=== PATIENT | female | born 2000 | race Native Hawaiian/Other Pacific Islander ===

== ENCOUNTER 2021-05-19 15:16 | Outpatient (CLI) | payer OTHER ==
[2021-05-19 16:17] LABS: PLATELET COUNT 243 K/uL (152-353)
[2021-05-19 16:42] LABS: POTASSIUM 3.7 mmol/L (3.6-5.2)
== END 2021-05-19 21:58 | disposition home or self-care (01) ==
LOC: LABW 15:16
PROVIDERS: ATTEND Nurse Practitioner Family
DX: E28.2 Polycystic ovarian syndrome (principal); R53.83 Other fatigue; N30.01 Acute cystitis with hematuria
CPT/HCPCS: 36415; 80053; 80061; 82306; 82607; 82670; 82746; 83001; 83002; 83519; 83520; 83525; 84146; 84402; 84403; 84439; 84443; 85027; 87088

== ENCOUNTER 2022-02-09 13:43 | Outpatient (CLI) | payer OTHER | END 2022-02-09 18:54 | disposition home or self-care (01) | LOC: US 13:43 | PROVIDERS: ATTEND Nurse Practitioner Family | DX: R10.12 Left upper quadrant pain (principal) | CPT/HCPCS: 36415; 80053; 82150; 83690 ==

== ENCOUNTER 2022-05-20 09:01 | Outpatient (CLI) | payer OTHER | END 2022-05-20 19:12 | disposition home or self-care (01) | LOC: US 09:01 | PROVIDERS: ATTEND Nurse Practitioner Family | DX: R16.1 Splenomegaly, not elsewhere classified (principal) ==

== ENCOUNTER 2022-06-29 13:43 | Outpatient (CLI) | payer OTHER ==
[~2022-06-29] VITALS: Ht 167.6 cm; Wt 120.3 kg
[2022-06-29 13:48] VITALS: BP 144/87; TEMP 97.8
[2022-06-29 15:23] VITALS: BP 135/82; TEMP 97.5
[2022-06-29 15:38] VITALS: BP 137/82; TEMP 97.9
[2022-06-29 16:08] VITALS: BP 145/92; TEMP 97.8
== END 2022-06-29 21:00 | disposition home or self-care (01) ==
LOC: INF 13:43
PROVIDERS: ATTEND Family Medicine
DX: Z23 Encounter for immunization (principal); U07.1 COVID-19
CPT/HCPCS: 96374; Q0222